=== PATIENT | male | born 1975 | race Caucasian/White ===

== ENCOUNTER 2017-04-28 09:55 | Emergency (ER) | payer MEDICAID, SELFPAY ==
[~2017-04-28] VITALS: Ht 180.3 cm; Wt 84.9 kg
[2017-04-28] MEDS ORDERED: SODIUM CHLORIDE 0.9% 1,000ML IVBOLUS ONE (11:00)
[2017-04-28] MEDS ORDERED: ONDANSETRON 2MG/ML, 2ML IVPush ONE (11:00)
[2017-04-28] MEDS ORDERED: AMPICILLIN/SULBACTAM 3 GM in SODIUM CHLORIDE 0.9% 100 ML IV ONE (11:00)
[2017-04-28] MEDS ORDERED: MORPHINE SULFATE 4 MG/ML, 1ML IVPush PRN (11:00)
[2017-04-28] MEDS ORDERED: MORPHINE SULFATE 4 MG/ML, 1ML ONE (11:01)
[2017-04-28] MEDS ORDERED: ONDANSETRON 2MG/ML, 2ML ONE (11:02)
[2017-04-28 12:08] LABS: BLOOD UREA NITROGEN 10 mg/dL (7-18)
[2017-04-28 12:25] LABS: DIFF TOTAL CELLS COUNTED 100 CELL DIFF
[2017-04-28 12:27] LABS: VERIFY COUNTS? YES
[2017-04-28] MEDS ORDERED: OMNIPAQUE 350 MG/ML, 100ML BOTTLE ONE (12:35)
[2017-04-28 13:18] VITALS: BP 156/95
== END 2017-04-28 13:28 | disposition home or self-care (01) ==
LOC: ED 13:10
DX: L02.11 Cutaneous abscess of neck (principal); K04.7 Periapical abscess without sinus; K12.2 Cellulitis and abscess of mouth
CPT/HCPCS: 36415; 70491; 80048; 82040; 85025; 87040; 96365; 96375; 99291; J0295; J2405; J7030; Q9967

== ENCOUNTER 2017-06-11 17:01 | Emergency (ER) | payer MEDICAID ==
[~2017-06-11] VITALS: Ht 177.8 cm; Wt 81.1 kg
[2017-06-11 17:03] VITALS: BP 156/96
== END 2017-06-11 18:52 | disposition home or self-care (01) ==
LOC: ED 18:49
DX: S11.91XD Laceration without foreign body of unspecified part of neck, subsequent encounter (principal); Z88.0 Allergy status to penicillin; Z88.6 Allergy status to analgesic agent; Z88.8 Allergy status to other drugs, medicaments and biological substances
CPT/HCPCS: 99283